=== PATIENT | male | born 1955 | race Two or more races ===

== ENCOUNTER 2017-08-19 10:04 | Inpatient (IN) | payer MEDICAID ==
[~2017-08-19] VITALS: Ht 162.6 cm; Wt 81.6 kg
[2017-08-19 10:10] VITALS: BP 124/65
[2017-08-19 10:38] LABS: APPEARANCE,URINE CLEAR; KETONES,URINE NEGATIVE (NEGATIVE); LEUKOCYTE ESTERASE ,URINE 1+ (NEGATIVE); NITRITE,URINE NEGATIVE (NEGATIVE); PH,URINE 5 (4.5-8.0); PROTEIN,URINE 3+ (NEGATIVE); UROBILINOGEN,URINE NORMAL MG/DL (0.0-1.0)
[2017-08-19 10:53] LABS: BACTERIA,URINE FEW /HPF; SQUAMOUS EPITHELIAL CELL,UR OCCASIONAL /LPF (NONE/OCC); YEAST,URINE FEW /HPF
[2017-08-19 11:13] LABS: BASOPHILS % (AUTO) 0.9 % (0.0-2.0); LYMPHOCYTES % (AUTO) 8.7 % (20.0-45.0); MEAN CORPUSCULAR HEMOGLOBIN 32.4 PG (27.0-31.0); MEAN CORPUSCULAR HGB CONC 33.4 G/DL (32.0-36.0); MEAN CORPUSCULAR VOLUME 97 FL (80-99); MEAN PLATELET VOLUME 8.5 FL (6.5-10.1); MONOCYTES % (AUTO) 8.3 % (1.0-10.0); PLATELET COUNT 211 K/UL (150-450); RED BLOOD COUNT 2.58 M/UL (4.70-6.10); RED CELL DISTRIBUTION WIDTH 14.1 % (11.6-14.8); WHITE BLOOD COUNT 6.3 K/UL (4.8-10.8)
[2017-08-19 12:03] LABS: ALANINE AMINOTRANSFERASE 9 U/L (12-78); ALBUMIN/GLOBULIN RATIO 0.3 (1.0-2.7); ANION GAP 11 (5-15); ASPARTATE AMINO TRANSFERASE 28 U/L (15-37); CALCIUM 7.8 MG/DL (8.5-10.1); CARBON DIOXIDE 21 MMOL/L (21-32); CHLORIDE 94 MMOL/L (98-107); CKMB 2.4 NG/ML (0.0-3.6); GLOMERULAR FILTRATION RATE 15.3 mL/min (>60); POTASSIUM 4.3 MMOL/L (3.5-5.1); SODIUM 126 MMOL/L (136-145); TOTAL PROTEIN 5.8 G/DL (6.4-8.2)
--- NOTE | 2017-08-19 12:23 | Diagnostic Imaging Report ---
Indication: Dyspnea Comparison: None A single view chest radiograph was obtained. Findings: There is a left pleural effusion. Interstitial edema is present. The heart size is borderline enlarged. Bones are osteopenic. Impression: Interstitial edema left pleural effusion
[2017-08-19 12:30] VITALS: BP 128/64
--- NOTE | 2017-08-19 13:37 | Emergency Room Report ---
History of Present Illness General Chief Complaint: Abnormal Labs Source: Medical Record, EMS Present Illness HPI This patient presents from a alf facility. He is nonverbal at baseline. He is G-tube dependent. The patient presents for abnormal labs. Per report, the patient presents for elevated creatinine and BUN. There is no other history available. There no other complaints. The patient has a history of chronic renal insufficiency, congestive heart failure, COPD, CVA and dementia. Allergies: Coded Allergies: No Known Allergies (Unverified , 08/19/17) Patient History Past Medical History: see triage record, old chart reviewed, DM, HTN, OK, CAD, CHF, renal disease Social History: Denies: smoking, alcohol use, drug use Reviewed Nursing Documentation: PMH: Agreed, PSxH: Agreed Nursing Documentation-PMH Hx Diabetes: Yes - type 2 Review of Systems All Other Systems: limited Physical Exam Vital Signs Date Time Temp Pulse Resp B/P (MAP) Pulse Ox O2 Delivery O2 Flow Rate FiO2 08/19/17 09:57 98.1 90 22 126/66 95 Nasal Cannula 2.0 Sp02 EP Interpretation: reviewed, normal General Appearance: no apparent distress, alert, GCS 15, non-toxic Head: normocephalic, atraumatic Eyes: bilateral eye normal inspection, bilateral eye PERRL ENT: no angioedema Neck: full range of motion, supple/symm/no masses Respiratory: chest non-tender, lungs clear, normal breath sounds, no respiratory distress, no retraction, no accessory muscle use, speaking full sentences Cardiovascular #1: regular rate, rhythm, no edema Gastrointestinal: normal bowel sounds, non tender, soft, non-distended, no guarding, no rebound, other - G-tube in place Rectal: deferred Musculoskeletal: other - contracted Neurologic: other - non-verbal. unable to obtain full neuro. At baseline. Psychiatric: mood/affect normal Skin: other - anasarca. See RN skin exam for DU. Medical Decision Making Diagnostic Impression: Primary Impression: Acute renal failure Additional Impressions: Hyponatremia Anemia ER Course Patient presents with acute renal failure. He is also found to have hyponatremia and anemia. Am unsure of the chronicity of this. However, further review of the chart states chronic renal insufficiency. The patient is nonverbal and unable to communicate. This patient will be admitted for acute renal failure, hyponatremia and anemia for further investigation, monitoring and treatment. Laboratory Tests Test 08/19/17 10:12 08/19/17 10:45 Urine Color Pale yellow Urine Appearance Clear Urine pH 5 (4.5-8.0) Urine Specific [place] 1.010 (1.005-1.035) Urine Protein 3+ (NEGATIVE) H Urine Glucose (UA) Negative (NEGATIVE) Urine Ketones Negative (NEGATIVE) Urine Occult Blood 4+ (NEGATIVE) H Urine Nitrite Negative (NEGATIVE) Urine Bilirubin Negative (NEGATIVE) Urine Urobilinogen Normal MG/DL (0.0-1.0) Urine Leukocyte Esterase 1+ (NEGATIVE) H Urine RBC 2-4 /HPF (0 - 0) H Urine WBC 2-4 /HPF (0 - 0) Urine Squamous Epithelial Cells Occasional /LPF Urine Bacteria Few /HPF (NONE) Urine Yeast Few /HPF (NONE) H White Blood Count 6.3 K/UL (4.8-10.8) Red Blood Count 2.58 M/UL (4.70-6.10) L Hemoglobin 8.4 G/DL (14.2-18.0) L Hematocrit 25.0 % (42.0-52.0) L Mean Corpuscular Volume 97 FL (80-99) Mean Corpuscular Hemoglobin 32.4 PG (27.0-31.0) H Mean Corpuscular Hemoglobin Concent 33.4 G/DL (32.0-36.0) Red Cell Distribution Width 14.1 % (11.6-14.8) Platelet Count 211 K/UL (150-450) Mean Platelet Volume 8.5 FL (6.5-10.1) Neutrophils (%) (Auto) 82.0 % (45.0-75.0) H Lymphocytes (%) (Auto) 8.7 % (20.0-45.0) L Monocytes (%) (Auto) 8.3 % (1.0-10.0) Eosinophils (%) (Auto) 0.0 % (0.0-3.0) Basophils (%) (Auto) 0.9 % (0.0-2.0) Prothrombin Time 10.0 SEC (9.30-11.50) Prothrombin Time INR 1.0 (0.9-1.1) PTT 30 SEC (23-33) Sodium Level 126 MMOL/L (136-145) L Potassium Level 4.3 MMOL/L (3.5-5.1) Chloride Level 94 MMOL/L (98-107) L Carbon Dioxide Level 21 MMOL/L (21-32) Anion Gap 11 (5-15) Blood Urea Nitrogen 124 mg/dL (7-18) H Creatinine 4.0 MG/DL (0.55-1.30) H Estimate Glomerular Filtration Rate 15.3 mL/min (>60) Glucose Level 134 MG/DL (74-106) H Lactic Acid Level 1.20 mmol/L (0.66-2.22) Calcium Level 7.8 MG/DL (8.5-10.1) L Total Bilirubin 0.2 MG/DL (0.2-1.0) Aspartate Amino Transferase (AST) 28 U/L (15-37) Alanine Aminotransferase (ALT) 9 U/L (12-78) L Alkaline Phosphatase 184 U/L (46-116) H Total Creatine Kinase 172 U/L (26-308) Creatine Kinase MB 2.4 NG/ML (0.0-3.6) Creatine Kinase MB Relative Index 1.3 Troponin I 0.056 ng/mL (0.000-0.056) Total Protein 5.8 G/DL (6.4-8.2) L Albumin 1.5 G/DL (3.4-5.0) L Globulin 4.3 g/dL Albumin/Globulin Ratio 0.3 (1.0-2.7) L EKG Diagnostic Results Rate: normal Rhythm: NSR ST Segments: no acute changes Rhythm Strip Diag. Results EP Interpretation: yes Rate: 80's Rhythm: NSR, no PVC's, no ectopy Chest X-Ray Diagnostic Results Chest X-Ray Diagnostic Results : Chest X-Ray Ordered: Yes # of Views/Limited/Complete: 1 View Indication: Other EP Interpretation: No Interpretation: no pneumothorax, other - L. pleural effusion, Interstitial edema. Impression: Other Electronically Signed by: Stormy Huang Last Vital Signs Date Time Temp Pulse Resp B/P (MAP) Pulse Ox O2 Delivery O2 Flow Rate FiO2 08/19/17 12:30 98.3 90 15 128/64 99 Nasal Cannula 2.0 Disposition: ADMITTED INPATIENT Condition: Serious Referrals: BLU ESCALANTE (PCP) JIMBO HUANG D.O. Aug 19, 2017 13:37
[2017-08-19 16:00] VITALS: BP 133/76
[2017-08-19] MEDS ORDERED: Heparin Sod 1000 units/ml 10ml IV PRN (19:00)
[2017-08-19 20:00] VITALS: BP 127/63
[2017-08-19] MEDS ORDERED: Zolpidem 5mg tab ORAL PRN (21:00)
[2017-08-19] MEDS: Epogen (for ESRD on dialysis) SUBQ SCH (22:11)
[2017-08-19] MEDS: Heparin 5000 units/ml inj SUBQ SCH (22:13)
[2017-08-19] MEDS ORDERED: traMADol 50mg tab GT PRN (23:00)
[2017-08-19] MEDS ORDERED: Acetaminophen 650mg/20.3ml GT PRN (23:00)
[2017-08-19] MEDS ORDERED: Albuterol/Ipratropium 3ml neb HHN PRN (23:00)
[2017-08-20] VITALS (12 sets, daily range): BP systolic 101–134; BP diastolic 37–75
--- NOTE | 2017-08-20 03:00 | Consultation ---
DATE OF CONSULTATION: 08/19/2017 NEPHROLOGY CONSULTATION ATTENDING PHYSICIAN: Parrish Main M.D. REASON FOR CONSULTATION: Elevated BUN and creatinine and abnormal electrolytes. HISTORY OF PRESENT ILLNESS: This is a 62-year-old male from [facility], who has previous history of advanced chronic kidney disease. The patient was referred to the hospital due to advanced kidney failure. The patient is demented and unable to give any further information. PAST MEDICAL HISTORY: 1. Pre end-stage renal failure. 2. 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 3. Status post cerebrovascular accident. 4. Chronic obstructive pulmonary disease. 5. Status post gastrostomy tube. 6. Status post intracranial hemorrhage. 7. Type 2 diabetes mellitus. 8. Anemia of chronic kidney disease. MEDICATIONS: He is on IV fluids, Tylenol p.r.n., heparin subcutaneously, Mylanta, Protonix, and saline. ALLERGIES: No known allergies. FAMILY HISTORY: Unable to obtain secondary to mental status. SOCIAL HISTORY: Unable to obtain secondary to mental status. REVIEW OF SYSTEMS: Unable to obtain secondary to mental status. PHYSICAL EXAMINATION: GENERAL: This is an elderly male who is in no acute distress. VITAL SIGNS: Blood pressure 132/76, pulse 90 and regular, respirations 20, and temperature 97.7. HEENT: The head is normocephalic and atraumatic. Pupils are equal, round, and reactive to light and accommodation consensually. NECK: Supple. Trachea midline. There was no lymphadenopathy or thyromegaly. LUNGS: Clear to auscultation and percussion. HEART: Regular rate and rhythm without rubs, murmurs, or gallops. ABDOMEN: Soft and nontender. He has a G-tube. EXTREMITIES: He has multiple contractures. There was no clubbing or cyanosis. NEUROLOGICAL: He is obtunded. There were no gross focal findings. LABORATORY DATA: No ancillary data. Hematocrit 25. Otherwise, CBC within normal limits. Sodium 126, potassium 4.3, BUN 124, and creatinine 4. ASSESSMENT: 1. End-stage renal failure, most likely secondary to diabetic nephropathy. 2. Pre end-stage renal failure. 3. 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 4. Status post cerebrovascular accident. 5. Chronic obstructive pulmonary disease. 6. Status post gastrostomy tube. 7. Status post intracranial hemorrhage. 8. Type 2 diabetes mellitus. 9. Anemia of chronic kidney disease. PLAN: 1. The patient will be started on hemodialysis tomorrow. 2. Vascular Surgery to insert the PermCath. Thank you, Dr. Main, for letting me participate in the care of this patient. Perez Yost M.D. DR: JEANINE JOB#: [id number] CC:
[2017-08-20] MEDS ORDERED: Milk of Magnesia 30ml Ud GT PRN (04:30)
[2017-08-20] MEDS: NovoLOG Insulin Flexpen SUBQ SCH ×4 (06:09→20:41)
--- NOTE | 2017-08-20 08:13 | History & Physical ---
History and Physical History & Physicial 62-year-old male from [facility], who has previous history of advanced chronic kidney disease who has had increasing difficulty with fluid management. The patient was referred to the hospital due to advanced kidney failure and evaluation for HD. The patient is demented and unable to give any further information. he is bedbound and GT dependent PAST MEDICAL HISTORY: 1. Pre end-stage renal failure. 2. 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 3. Status post cerebrovascular accident. 4. Chronic obstructive pulmonary disease. 5. Status post gastrostomy tube. 6. Status post intracranial hemorrhage. 7. Type 2 diabetes mellitus. 8. Anemia of chronic kidney disease. MEDICATIONS/ALLERGIES: REVIEWED FAMILY HISTORY: unable SOCIAL HISTORY: SNf patient; bedbound; has family REVIEW OF SYSTEMS: Unable PHYSICAL EXAMINATION: WDWN chronically ill NAD clear breath sounds bilaterally without rhonchi or wheeze [id number] without MRG NABS nontender no HSM; GT no CCE nonfocal poor LOC contractures Labs Test 08/19/17 10:12 08/19/17 10:45 Urine Color Pale yellow Urine Appearance Clear Urine pH 5 (4.5-8.0) Urine Specific [place] 1.010 (1.005-1.035) Urine Protein 3+ (NEGATIVE) Urine Glucose (UA) Negative (NEGATIVE) Urine Ketones Negative (NEGATIVE) Urine Occult Blood 4+ (NEGATIVE) Urine Nitrite Negative (NEGATIVE) Urine Bilirubin Negative (NEGATIVE) Urine Urobilinogen Normal MG/DL (0.0-1.0) Urine Leukocyte Esterase 1+ (NEGATIVE) Urine RBC 2-4 /HPF (0 - 0) Urine WBC 2-4 /HPF (0 - 0) Urine Squamous Epithelial Cells Occasional /LPF Urine Bacteria Few /HPF (NONE) Urine Yeast Few /HPF (NONE) White Blood Count 6.3 K/UL (4.8-10.8) Red Blood Count 2.58 M/UL (4.70-6.10) Hemoglobin 8.4 G/DL (14.2-18.0) Hematocrit 25.0 % (42.0-52.0) Mean Corpuscular Volume 97 FL (80-99) Mean Corpuscular Hemoglobin 32.4 PG (27.0-31.0) Mean Corpuscular Hemoglobin Concent 33.4 G/DL (32.0-36.0) Red Cell Distribution Width 14.1 % (11.6-14.8) Platelet Count 211 K/UL (150-450) Mean Platelet Volume 8.5 FL (6.5-10.1) Neutrophils (%) (Auto) 82.0 % (45.0-75.0) Lymphocytes (%) (Auto) 8.7 % (20.0-45.0) Monocytes (%) (Auto) 8.3 % (1.0-10.0) Eosinophils (%) (Auto) 0.0 % (0.0-3.0) Basophils (%) (Auto) 0.9 % (0.0-2.0) Prothrombin Time 10.0 SEC (9.30-11.50) Prothromb Time International Ratio 1.0 (0.9-1.1) Activated Partial Thromboplast Time 30 SEC (23-33) Sodium Level 126 MMOL/L (136-145) Potassium Level 4.3 MMOL/L (3.5-5.1) Chloride Level 94 MMOL/L (98-107) Carbon Dioxide Level 21 MMOL/L (21-32) Anion Gap 11 (5-15) Blood Urea Nitrogen 124 mg/dL (7-18) Creatinine 4.0 MG/DL (0.55-1.30) Estimat Glomerular Filtration Rate 15.3 mL/min (>60) Glucose Level 134 MG/DL (74-106) Lactic Acid Level 1.20 mmol/L (0.66-2.22) Calcium Level 7.8 MG/DL (8.5-10.1) Total Bilirubin 0.2 MG/DL (0.2-1.0) Aspartate Amino Transf (AST/SGOT) 28 U/L (15-37) Alanine Aminotransferase (ALT/SGPT) 9 U/L (12-78) Alkaline Phosphatase 184 U/L (46-116) Total Creatine Kinase 172 U/L (26-308) Creatine Kinase MB 2.4 NG/ML (0.0-3.6) Creatine Kinase MB Relative Index 1.3 Troponin I 0.056 ng/mL (0.000-0.056) Total Protein 5.8 G/DL (6.4-8.2) Albumin 1.5 G/DL (3.4-5.0) Globulin 4.3 g/dL Albumin/Globulin Ratio 0.3 (1.0-2.7) ASSESSMENT: 1. ESRD 2. fluid overload 3. OBS 4. History of cerebrovascular accident. 5. Chronic obstructive pulmonary disease. 6. Status post gastrostomy tube. 7. Status post intracranial hemorrhage. 8. Type 2 diabetes mellitus. 9. Anemia of chronic kidney disease. 10. UTI PLAN renal HD stabilize resume SNF meds dc when stable antibiotics for UTI BLU ESCALANTE Aug 20, 2017 08:13
[2017-08-20] MEDS: Heparin 5000 units/ml inj SUBQ SCH ×2 (09:00→20:40)
[2017-08-20] MEDS: Ascorbic Acid 500mg tab GT SCH (09:36)
[2017-08-20] MEDS: Metoprolol 25mg tab GT SCH ×2 (09:36→20:47)
[2017-08-20] MEDS: Docusate 100mg cap ORAL SCH (09:36)
[2017-08-20 10:40] LABS: ALANINE AMINOTRANSFERASE 6 U/L (12-78); ALBUMIN/GLOBULIN RATIO 0.4 (1.0-2.7); ANION GAP 10 (5-15); ASPARTATE AMINO TRANSFERASE 30 U/L (15-37); CALCIUM 8.3 MG/DL (8.5-10.1); CARBON DIOXIDE 21 MMOL/L (21-32); CHLORIDE 98 MMOL/L (98-107); GLOMERULAR FILTRATION RATE 15.3 mL/min (>60); PHOSPHORUS 4.3 MG/DL (2.5-4.9); SODIUM 129 MMOL/L (136-145)
[2017-08-20 10:47] LABS: BASOPHILS % (AUTO) 1.6 % (0.0-2.0); LYMPHOCYTES % (AUTO) 11.5 % (20.0-45.0); MEAN CORPUSCULAR HEMOGLOBIN 32.8 PG (27.0-31.0); MEAN CORPUSCULAR HGB CONC 33.1 G/DL (32.0-36.0); MEAN CORPUSCULAR VOLUME 99 FL (80-99); MEAN PLATELET VOLUME 8.1 FL (6.5-10.1); MONOCYTES % (AUTO) 6.7 % (1.0-10.0); NEUTROPHILS % (AUTO) 80.2 % (45.0-75.0); PLATELET COUNT 222 K/UL (150-450); RED BLOOD COUNT 2.81 M/UL (4.70-6.10); RED CELL DISTRIBUTION WIDTH 14.1 % (11.6-14.8); WHITE BLOOD COUNT 5.8 K/UL (4.8-10.8)
--- NOTE | 2017-08-20 10:50 | Nephrology Progress Note ---
Assessment/Plan Plan ESRD - for PermCath today then HD To start regular HD Rx. Referred to [facility]. Subjective Subjective Nonverbal Objective Objective Last 24 Hour Vital Signs Date Time Temp Pulse Resp B/P (MAP) Pulse Ox O2 Delivery O2 Flow Rate FiO2 08/20/17 09:36 97 131/51 08/20/17 09:36 97 131/51 08/20/17 08:00 97.9 97 18 131/51 98 Nasal Cannula 2.0 28 08/20/17 07:38 96 Nasal Cannula 2.0 28 08/20/17 07:38 75 18 Nasal Cannula 2.0 28 08/20/17 07:38 Nasal Cannula 2.0 28 08/20/17 04:00 97.3 97 18 100 Nasal Cannula 2.0 08/20/17 04:00 98.4 94 20 131/56 100 Nasal Cannula 2.0 08/20/17 03:46 95 08/20/17 00:00 97.7 74 20 127/63 98 Nasal Cannula 2.0 08/19/17 23:45 88 08/19/17 20:00 97.3 97 18 127/63 Nasal Cannula 2.0 08/19/17 19:54 100 08/19/17 16:00 97.7 90 20 133/76 95 Room Air 08/19/17 16:00 79 08/19/17 13:45 98.3 90 15 128/64 99 Nasal Cannula 2.0 08/19/17 12:30 98.3 90 15 128/64 99 Nasal Cannula 2.0 Laboratory Tests 08/20/17 09:05: White Blood Count 5.8, Red Blood Count 2.81L, Hemoglobin 9.2L, Hematocrit 27.9L , Mean Corpuscular Volume 99, Mean Corpuscular Hemoglobin 32.8H, Mean Corpuscular Hemoglobin Concent 33.1, Red Cell Distribution Width 14.1, Platelet Count 222, Mean Platelet Volume 8.1, Neutrophils (%) (Auto) 80.2H, Lymphocytes ( %) (Auto) 11.5L, Monocytes (%) (Auto) 6.7, Eosinophils (%) (Auto) 0.0, Basophils (%) (Auto) 1.6, Sodium Level [Pending], Potassium Level [Pending], Chloride Level [Pending], Carbon Dioxide Level [Pending], Blood Urea Nitrogen [ Pending], Creatinine [Pending], Estimat Glomerular Filtration Rate [Pending], Glucose Level [Pending], Calcium Level [Pending], Phosphorus Level [Pending], Total Bilirubin [Pending], Aspartate Amino Transf (AST/SGOT) [Pending], Alanine Aminotransferase (ALT/SGPT) [Pending], Alkaline Phosphatase [Pending], Total Protein [Pending], Albumin [Pending], Globulin [Pending], Hepatitis A IgM Antibody [Pending], Hepatitis B Surface Antigen [Pending], Hepatitis B Core IgM Antibody [Pending], Hepatitis C Antibody [Pending] Height (Feet): 5 Height (Inches): 4.00 Weight (Pounds): 180 Objective Cv RR Lungs CTA Abd SNT. BS + E No CCE KRISTINE SULLIVAN Aug 20, 2017 10:50
--- NOTE | 2017-08-20 10:54 | Diagnostic Imaging Report ---
Indication: ABD PAIN elevated renal function tests. Acute renal failure Technique: Grayscale and duplex images of the kidneys, retroperitoneum, and bladder were obtained. Comparison:None Findings: Right kidney measures 11 cm in length. Left kidney measures 9.9 cm in length. Both kidneys demonstrate increased echogenicity. No hydronephrosis. There are bilateral renal cysts. Echogenic shadowing foci in both renal sinuses may indicate bilateral nonobstructive calyceal calculi. Normal inferior vena cava. Bladder is empty, contains a Bartholomew catheter. Impression: Bilateral echogenic kidneys, consistent with chronic medical renal disease Negative for hydronephrosis Bilateral non-shadowing renal sinus echogenic foci, may represent small nonobstructive calyceal calculi Bilateral renal cysts.
[2017-08-20] MEDS ORDERED: Levofloxacin 500mg tab ORAL ONE (13:00)
[2017-08-20] MEDS ORDERED: Heparin Sod 1000 units/ml 10ml INJ ONE (13:30)
[2017-08-20] MEDS ORDERED: Heparin 2000 units/Ns 1000ml INJ ONE (13:30)
[2017-08-20] MEDS ORDERED: Lidocaine 2% 20mg/ml/Epi 0.005mg/ml 20ml vial INJ ONE (13:30)
--- NOTE | 2017-08-20 14:22 | Pre-Procedure Note/Attestation ---
Pre-Procedure Note/Attestation Complete Prior to Procedure Planned Procedure: not applicable Procedure Narrative: tunneled dialysis catheter Indications for Procedure Pre-Operative Diagnosis: ESRD Attestation I attest that I discussed the nature of the procedure; its benefits; risks and complications; and alternatives (and the risks and benefits of such alternatives ), prior to the procedure, with the patient (or the patient's legal fulfillment representative). I attest that, if there was a reasonable possibility of needing a blood transfusion, the patient (or the patient's legal fulfillment representative) was given the [facility] standardized written summary, pursuant to the Rodrick Danika Blood Safety Act ([place] Health and Safety Code # 1645, as amended). I attest that I re-evaluated the patient just prior to the surgery and that there has been no change in the patient's H&P, except as documented below: Discussed with son by phone at 1421 on 08/20/2017 CASEY BENITEZ M.D. Aug 20, 2017 14:22
--- NOTE | 2017-08-20 17:06 | Wound Care Consultation ---
Wound Assessment Wound Assessment #1: Wound Number: 1 Wound Present on Admission: Yes New Wound: No Status Change of Wound: No Wound Location Body Site Modif: left Wound Location Body Site: trochanter - area Wound Type: pressure ulcer Augustine Test: Does not Augustine Pressure Ulcer Stage: II - scattered Wound Thickness: Partial Thickness Wound Length: 13.0 Wound Width: 13.0 Wound Depth: 0.1 Percent of Wound [place]/Red: 100 Wound Drainage Description: Serosanguineous Wound Drainage Amount: Scant Wound Drainage Odor: None/Absent Tissue Surrounding Wound: Intact Wound General Appearance: Reddened, Draining Wound Assessment #2: Wound Number: 2 Wound Present on Admission: Yes New Wound: No Status Change of Wound: No Wound Location Body Site Modif: right Wound Location Body Site: heel Wound Type: pressure ulcer Augustine Test: Does not Augustine Pressure Ulcer Stage: Unstageable Wound Thickness: Full Thickness Wound Length: 4.0 Wound Width: 4.0 Wound Depth: utd Percent of Wound Black/Brown: 100 Wound Drainage Description: Serosanguineous Wound Drainage Amount: Scant Wound Drainage Odor: None/Absent Tissue Surrounding Wound: Indurated Wound General Appearance: Blackened, Draining, Necrotic Wound Comment #1 Left trochanter scattered stage II pressure ulcers. Surrounding skin intact. #2 Right heel unstageable pressure ulcer with black eschar adhered to wound bed. #3 Dryness on both lower legs and feet Recommendation -Left trochanter scattered stage II pressure ulcers Cleanse with saline, pat dry, apply Triad cream, cover with Biatain silicone daily and PRN soiled/dislodged -Right heel unstageable pressure ulcer Cleanse with saline, pat dry, apply Betadine, cover with 4x4, wrap with Kerlix daily and PRN soiled/dislodged -Low air loss mattress -Optimize nutrition -Heel protector on both heels -Offload both heels -Turn and reposition -Keep clean and dry -Apply A&D ointment on both lower legs and feet -Assess and f/u accordingly for any changes BARRY MADDOX RN Aug 20, 2017 17:06
--- NOTE | 2017-08-20 17:44 | Cardiology Report ---
APPROVED REPORT EXAM: Two-dimensional and M-mode echocardiogram with Doppler and color Doppler. INDICATION Preop evaluation M-Mode DIMENSIONS IVSd1.2 (0.7-1.1cm)Left Atrium (MM)4.4 (1.6-4.0cm) LVDd5.1 (3.5-5.6cm)Aortic Root2.9 (2.0-3.7cm) PWd0.8 (0.7-1.1cm)Aortic Cusp Exc.2.0 (1.5-2.0cm) LVDs3.8 (2.5-4.0cm) PWs1.6 cm Technically difficult study due to poor acoustical windows and surgical site blocking. Normal left ventricular chamber size. Mild global left ventricular hypokinesis to extent visualized. Left ventricular ejection fraction estimated to be 50 %. Study quality precludes accurate assessment of regional wall motion. Borderline mild left ventricular hypertrophy. Anterior Echo-free space, may be due to pericardial fat or effusion. Mild left atrial enlargement. Right cardiac chamber sizes are within normal limits. Focal aortic valve sclerosis with adequate cusp excursion. Thickened mitral valve leaflets with normal excursion. Mitral annulus and aortic root calcification. Pulmonic valve not well visualized. Normal tricuspid valve structure. IVC at normal size with physiologic collapse. A color flow and spectral Doppler study was performed and revealed: Trace aortic regurgitation. Trace to mild mitral regurgitation. Mitral diastolic velocities suggest reduced left ventricular relaxation c/w mild LV diastolic dysfunction (Grade I). Trace to mild tricuspid regurgitation. Tricuspid systolic velocities suggests peak right ventricular systolic pressure of 44 mmHg, consistent with mild pulmonary hypertension.
[2017-08-20] MEDS: Levemir Flexpen SUBQ SCH (20:40)
[2017-08-20] MEDS ORDERED: ACTOS15 MG GT (22:29)
[2017-08-20] MEDS ORDERED: LEVEMIR100 UNIT/1 SUBQ (22:29)
[2017-08-20] MEDS ORDERED: NORVASC10 MG GT (22:29)
[2017-08-20] MEDS ORDERED: TYLENOL EXTRA500 MG GT (22:29)
[2017-08-20] MEDS ORDERED: COLACE100 MG GT (22:29)
[2017-08-20] MEDS ORDERED: zinc (22:29)
[2017-08-20] MEDS ORDERED: RENAGEL400 MG GT (22:29)
[2017-08-20] MEDS ORDERED: PROMOD946 ML GT (22:29)
[2017-08-20] MEDS ORDERED: ZOFRAN4 M1 GT (22:29)
[2017-08-20] MEDS ORDERED: MOM30 ML (22:29)
[2017-08-20] MEDS ORDERED: IPRATROPIU0.2 MG/1 M HHN (22:29)
[2017-08-20] MEDS ORDERED: DULCOLAX10 MG RC (22:29)
[2017-08-20] MEDS ORDERED: VITAMIN C500 M3 GT (22:29)
[2017-08-20] MEDS ORDERED: CALCIUM CARBON650 M2 GT (22:29)
[2017-08-20] MEDS ORDERED: TRAMADOL HCL50 MG GT ×2 (22:29)
[2017-08-20] MEDS ORDERED: METOPROLOL TART25 MG GT (22:29)
[2017-08-20] MEDS ORDERED: UTI-STAT L3875 MG/31 PO (22:29)
[2017-08-20] MEDS ORDERED: FERROUS SULFAT325 M2 GT (22:29)
[2017-08-20] MEDS ORDERED: MULTIVITAMINS1 EAC8 GT (22:29)
[2017-08-20] MEDS ORDERED: DIPHENHYDRAMINE25 MG GT (22:29)
[2017-08-21 00:48] VITALS: BP 125/61
[2017-08-21 04:00] VITALS: BP 136/73
[2017-08-21] MEDS: NovoLOG Insulin Flexpen SUBQ SCH ×4 (06:30→21:10)
[2017-08-21 08:32] VITALS: BP 142/72
[2017-08-21] MEDS ORDERED: Cefepime HCl 0.5 GM in D5W 55 ML IVPB SCH (09:00)
[2017-08-21] MEDS: Ascorbic Acid 500mg tab GT SCH (09:46)
[2017-08-21] MEDS: Docusate 100mg cap ORAL SCH (09:46)
[2017-08-21] MEDS: Tums 500mg GT SCH (09:46)
[2017-08-21] MEDS: Metoprolol 25mg tab GT SCH ×2 (09:47→21:07)
[2017-08-21] MEDS: Renvela 800mg Pkt GT SCH ×3 (09:47→17:21)
[2017-08-21] MEDS: Heparin 5000 units/ml inj SUBQ SCH ×2 (09:51→21:11)
--- NOTE | 2017-08-21 10:50 | General Progress Note ---
Assessment/Plan Assessment/Plan ASSESSMENT: 1. ESRD 2. fluid overload 3. OBS 4. History of cerebrovascular accident. 5. Chronic obstructive pulmonary disease. 6. Status post gastrostomy tube. 7. Status post intracranial hemorrhage. 8. Type 2 diabetes mellitus. 9. Anemia of chronic kidney disease. 10. UTI PLAN renal appreciated HD stabilize SNF meds dc when stable antibiotics for UTI- needs IV impression, plan, and exam edited and reviewed in detail care discussed with RN Subjective ROS Limited/Unobtainable: Yes Allergies: Coded Allergies: No Known Allergies (Unverified , 08/19/17) Objective Last 24 Hour Vital Signs Date Time Temp Pulse Resp B/P (MAP) Pulse Ox O2 Delivery O2 Flow Rate FiO2 08/21/17 09:47 88 142/72 08/21/17 09:45 88 142/72 08/21/17 08:32 99.0 88 20 142/72 100 Nasal Cannula 1.0 08/21/17 07:15 97 18 Room Air 21 08/21/17 07:15 Room Air 21 08/21/17 07:15 98 Room Air 21 08/21/17 04:00 99.7 95 22 136/73 96 Nasal Cannula 2.0 08/21/17 03:47 90 08/21/17 00:48 98.2 85 22 125/61 98 Room Air 08/20/17 23:55 81 08/20/17 20:47 98 123/46 08/20/17 20:03 93 08/20/17 20:00 97.5 92 18 123/46 98 Room Air 08/20/17 19:30 94 Room Air 21 08/20/17 19:30 Room Air 21 08/20/17 19:30 90 18 Room Air 21 08/20/17 16:00 89 08/20/17 16:00 97.5 84 19 101/37 Nasal Cannula 2.0 08/20/17 14:50 85 22 109/62 100 Nasal Cannula 2.0 08/20/17 14:45 85 15 117/63 100 Nasal Cannula 2.0 08/20/17 14:40 83 18 117/68 100 Nasal Cannula 2.0 08/20/17 14:35 78 16 118/70 100 Nasal Cannula 2.0 08/20/17 14:30 75 16 118/75 100 Nasal Cannula 2.0 08/20/17 13:22 76 24 2.0 08/20/17 12:00 71 08/20/17 11:47 97.5 71 20 134/62 100 Nasal Cannula 2.0 Height (Feet): 5 Height (Inches): 4.00 Weight (Pounds): 180 Objective WDWN NAD reduced breath sounds bilaterally without rhonchi or wheeze [id number] without MRG NABS nontender no HSM; GT no CC edema contractures nonfocal BLU ESCALANTE Aug 21, 2017 10:50
--- NOTE | 2017-08-21 11:27 | Diagnostic Imaging Report ---
Indications: Needs long-term dialysis access Technique: Patient had been given is scheduled dose of antibiotics one hour prior to commencement of the procedure, so no preprocedure IV antibiotics utilized. Informed consent obtained prior to commencement of the procedure from patient's son by phone. Total sterile technique, including sterile gloves, hand hygiene, hat, mask,, sterile gown, large sterile drape, and preparation with 2% chlorhexidine utilized. Local anesthesia with 1% lidocaine. Under real-time ultrasound guidance, puncture right internal jugular vein using 21-gauge micropuncture needle, passage 0.018 guidewire, exchange for 4 Ghanaian micropuncture introducer. The guidewire was used to measure the appropriate catheter length, and was removed. The sheath was left in place. The subcutaneous tract was then anesthetized with 1% lidocaine. A chest dermatotomy was made . The tunneling device was used to pull a 14.5 Ghanaian 23 cm BioBloc catheter through the subcutaneous tunnel to the neck dermatotomy. A guidewire was passed through the neck introducer into the inferior vena cava, and serial dilators were passed over it, followed by the introduction of a 14.5 [place]ian AirGuard peel-away sheath. The catheter was then introduced into the sheath, the peel-away sheath was removed. Digital radiograph documents satisfactory catheter tip position in the high right atrium, no kinking at the insertion site. Both catheter ports aspirated and flushed. Catheter was fixed to the skin. Patient tolerated procedure well without immediate complication. Total fluoroscopy time 0.7 minutes. Total dose area product 49 dGycm2 . Comparison: None Findings: Completion radiograph documents satisfactory position and course of the catheter, catheter tip at the high right atrium. Impression: Successful placement of right transjugular tunneled dialysis catheter, as described above
[2017-08-21 11:40] VITALS: BP 135/73
[2017-08-21] MEDS ORDERED: Heparin 5000 units/ml inj INJ PRN (12:00)
--- NOTE | 2017-08-21 12:00 | Nephrology Progress Note ---
Assessment/Plan Plan ESRD - had PermCath + HD yesterday. Next HD tomorrow. To start regular HD Rx. Referred to [facility]. Subjective Subjective Nonverbal Objective Objective Last 24 Hour Vital Signs Date Time Temp Pulse Resp B/P (MAP) Pulse Ox O2 Delivery O2 Flow Rate FiO2 08/21/17 11:40 97.7 85 20 135/73 99 Nasal Cannula 1.0 08/21/17 09:47 88 142/72 08/21/17 09:45 88 142/72 08/21/17 08:32 99.0 88 20 142/72 100 Nasal Cannula 1.0 08/21/17 07:15 97 18 Room Air 21 08/21/17 07:15 Room Air 21 08/21/17 07:15 98 Room Air 21 08/21/17 04:00 99.7 95 22 136/73 96 Nasal Cannula 2.0 08/21/17 03:47 90 08/21/17 00:48 98.2 85 22 125/61 98 Room Air 08/20/17 23:55 81 08/20/17 20:47 98 123/46 08/20/17 20:03 93 08/20/17 20:00 97.5 92 18 123/46 98 Room Air 08/20/17 19:30 94 Room Air 21 08/20/17 19:30 Room Air 21 08/20/17 19:30 90 18 Room Air 21 08/20/17 16:00 89 08/20/17 16:00 97.5 84 19 101/37 Nasal Cannula 2.0 08/20/17 14:50 85 22 109/62 100 Nasal Cannula 2.0 08/20/17 14:45 85 15 117/63 100 Nasal Cannula 2.0 08/20/17 14:40 83 18 117/68 100 Nasal Cannula 2.0 08/20/17 14:35 78 16 118/70 100 Nasal Cannula 2.0 08/20/17 14:30 75 16 118/75 100 Nasal Cannula 2.0 08/20/17 13:22 76 24 2.0 08/20/17 12:00 71 Height (Feet): 5 Height (Inches): 4.00 Weight (Pounds): 180 Objective Cv RR Lungs CTA Abd SNT. BS + E No CCE KRISTINE SULLIVAN Aug 21, 2017 12:00
[2017-08-21] MEDS ORDERED: Heparin Sod 1000 units/ml 10ml IV PRN (13:00)
[2017-08-21] MEDS ORDERED: Cefepime HCl 1 GM in D5W 55 ML IVPB SCH (13:00)
[2017-08-21] MEDS: Ferrous Sulfate 300 MG/5 ML UDC GT SCH ×2 (13:45→17:21)
[2017-08-21 16:02] VITALS: BP 136/65
[2017-08-21 20:12] VITALS: BP 132/62
[2017-08-21] MEDS: Levemir Flexpen SUBQ SCH (21:10)
[2017-08-21] MEDS: Epogen (for ESRD on dialysis) SUBQ SCH (21:11)
[2017-08-21] MEDS: Dyna-Hex 2% Top Sol 2oz TOPIC SCH (22:24)
[2017-08-22] VITALS (7 sets, daily range): BP systolic 122–157; BP diastolic 36–69
[2017-08-22] MEDS: NovoLOG Insulin Flexpen SUBQ SCH ×4 (06:30→23:49)
--- NOTE | 2017-08-22 08:25 | Diagnostic Imaging Report ---
APPROVED REPORT CPT Code: 71471 Vascular Symptoms Comments: Pre-Op Doppler Spectral Velocity Analysis RightLeft Note: Exam is technically difficult due to patient was altered and unable hold still. BILATERAL: CCA/BULB - Imaging reveals irregular, minimal plaque in both carotid bulbs. arteries. The Doppler spectral flow analysis is within normal limits throughout the internal and external carotid arteries. VERTEBRAL- The vertebral arteries are within normal limits.
--- NOTE | 2017-08-22 08:25 | Diagnostic Imaging Report ---
APPROVED REPORT CPT Code: 39949 Present Symptoms Shortness of breath Comments: Technically difficult study due to bilateral lower extremity contracture. RIGHT LEG: Venous imaging reveals a patent deep venous system. There is no evidence of thrombus within the femoral, popliteal or tibial segments. The greater saphenous vein is also within normal limits. Doppler indicates normal spontaneous flow within these segments. The right posterior tibial veins were not visualized due to patient contracture. LEFT LEG: Venous imaging reveals a patent deep venous system. There is no evidence of thrombus within the femoral, popliteal or tibial segments. The greater saphenous vein is also within normal limits. Doppler indicates normal spontaneous flow within these segments. Incidental finding: Lymph nodes in the right inguinal area at the level of the proximal superficial femoral vein measuring approximately 1.0 cm each.
--- NOTE | 2017-08-22 08:26 | Diagnostic Imaging Report ---
APPROVED REPORT CPT Code: 44228 Present Symptoms Comments: Pain and swelling BILATERAL UPPER EXTREMITY (Deep venous system): Imaging reveals patency of the internal jugular, subclavian, axillary and brachial veins. Doppler indicates normal spontaneous flow within these venous segments.
--- NOTE | 2017-08-22 08:26 | Diagnostic Imaging Report ---
APPROVED REPORT CPT Code: 37367 Symptoms Other : Pain Left arm edema Comments Pre-op dialysis access evaluation BILATERAL UPPER EXTREMITY: Imaging of the subclavian, axillary, brachial, right radial and right ulnar arteries is within normal limits. There is no evidence of stenosis or occlusion within these segments. The Doppler waveforms of the bilateral upper extremity are tri-phasic, consistent with normal inflow to the upper extremity. Note: Vasodilation (Doppler) waveforms noted in the left radial artery and left ulnar artery due to forearm edema.
--- NOTE | 2017-08-22 08:26 | Diagnostic Imaging Report ---
APPROVED REPORT CPT Code: G0365 Present Symptoms Comments: Pre-op dialysis access evaluation Vein Measurements(cm) Cephalic Basilic Right LeftRight Left 0.30Upper Arm0.320.34Mid Upper Arm0.42 0.33Mid Upper Arm0.290.31Antecubital Fossa0.38 0.32Upper Forearm0.24 0.22Antecubital Fossa0.44Wrist 0.17Upper Forearm0.22 The right and left cephalic and basilic veins were measured and evaluated for patency.
[2017-08-22] MEDS: Tums 500mg GT SCH (08:38)
[2017-08-22] MEDS: Renvela 800mg Pkt GT SCH ×3 (08:38→18:56)
[2017-08-22] MEDS: Ferrous Sulfate 300 MG/5 ML UDC GT SCH ×3 (08:38→18:56)
[2017-08-22] MEDS: Docusate 100mg cap ORAL SCH ×3 (08:39→09:00)
[2017-08-22] MEDS: Ascorbic Acid 500mg tab GT SCH (08:39)
[2017-08-22] MEDS: Metoprolol 25mg tab GT SCH ×2 (08:41→21:29)
[2017-08-22] MEDS: Heparin 5000 units/ml inj SUBQ SCH ×2 (08:47→21:34)
--- NOTE | 2017-08-22 08:53 | Nephrology Progress Note ---
Assessment/Plan Plan 1. ESRD on HD. 2. HTN 3.DM 4.anemia of CKD 5.s/p CVA 6.COPD 7. S/P PEG 8.s/p intracranial hemorrhage 9.left foot gangrene Plan HD today Pending approval from [facility] for outpt HD podiatry consult Subjective Subjective No acute event. Objective Objective Last 24 Hour Vital Signs Date Time Temp Pulse Resp B/P (MAP) Pulse Ox O2 Delivery O2 Flow Rate FiO2 08/22/17 08:41 77 145/69 08/22/17 08:41 77 145/69 08/22/17 08:00 97.8 77 20 145/69 99 Nasal Cannula 2.0 08/22/17 04:20 97.9 81 16 152/63 99 Nasal Cannula 08/22/17 04:00 73 08/22/17 00:30 75 155/60 Nasal Cannula 2.0 08/22/17 00:24 98.2 75 16 157/36 99 Nasal Cannula 1.0 08/22/17 00:00 73 08/21/17 21:07 86 132/62 08/21/17 20:12 98.8 89 20 132/62 Nasal Cannula 1.0 08/21/17 20:00 89 08/21/17 19:00 100 Room Air 21 08/21/17 19:00 85 18 Room Air 21 08/21/17 19:00 Room Air 21 08/21/17 16:02 98.8 91 20 136/65 98 Nasal Cannula 2.0 08/21/17 16:00 91 08/21/17 12:00 84 08/21/17 11:40 97.7 85 20 135/73 99 Nasal Cannula 2.0 08/21/17 09:47 88 142/72 08/21/17 09:45 88 142/72 Height (Feet): 5 Height (Inches): 4.00 Weight (Pounds): 180 Objective NAD, sleeping but aurosable clear RRR soft, non tender, BS+ no edema, R chest permacath + IGLESIAS,CAS Aug 22, 2017 08:53
[2017-08-22] MEDS: Cefepime 500mg in D5W 55ml IVPB SCH (12:04)
--- NOTE | 2017-08-22 16:29 | General Progress Note ---
Assessment/Plan Assessment/Plan ASSESSMENT: 1. ESRD 2. fluid overload 3. OBS 4. History of cerebrovascular accident. 5. Chronic obstructive pulmonary disease. 6. Status post gastrostomy tube. 7. Status post intracranial hemorrhage. 8. Type 2 diabetes mellitus. 9. Anemia of chronic kidney disease. 10. UTI PLAN renal appreciated HD stabilize SNF meds dc when stable antibiotics for UTI- needs IV wound care impression, plan, and exam edited and reviewed in detail care discussed with RN Subjective Allergies: Coded Allergies: No Known Allergies (Unverified , 08/19/17) Subjective stable care noted Objective Last 24 Hour Vital Signs Date Time Temp Pulse Resp B/P (MAP) Pulse Ox O2 Delivery O2 Flow Rate FiO2 08/22/17 12:00 97.5 66 19 126/58 100 Nasal Cannula 2.0 08/22/17 08:41 77 145/69 08/22/17 08:41 77 145/69 08/22/17 08:00 97.8 77 20 145/69 99 Nasal Cannula 2.0 08/22/17 06:33 Room Air 08/22/17 06:33 100 Room Air 08/22/17 06:33 78 17 Room Air 08/22/17 04:20 97.9 81 16 152/63 99 Nasal Cannula 08/22/17 04:00 73 08/22/17 00:30 75 155/60 Nasal Cannula 2.0 08/22/17 00:24 98.2 75 16 157/36 99 Nasal Cannula 1.0 08/22/17 00:00 73 08/21/17 21:07 86 132/62 08/21/17 20:12 98.8 89 20 132/62 Nasal Cannula 1.0 08/21/17 20:00 89 08/21/17 19:00 100 Room Air 21 08/21/17 19:00 85 18 Room Air 21 08/21/17 19:00 Room Air 21 Intake and Output 08/22/17 08/23/17 19:00 07:00 # Bowel Movements 1 Height (Feet): 5 Height (Inches): 4.00 Weight (Pounds): 180 Objective WDWN NAD reduced breath sounds bilaterally without rhonchi or wheeze [id number] without MRG NABS nontender no HSM; GT no CC edema contractures nonfocal BLU ESCALANTE Aug 22, 2017 16:29
[2017-08-22] MEDS: Dyna-Hex 2% Top Sol 2oz TOPIC SCH (21:29)
[2017-08-22] MEDS: Levemir Flexpen SUBQ SCH (21:34)
[2017-08-23] VITALS: BP 122/66
[2017-08-23 04:00] VITALS: BP 129/53
[2017-08-23] MEDS: NovoLOG Insulin Flexpen SUBQ SCH ×2 (06:00→12:00)
[2017-08-23] MEDS ORDERED: Morphine Sulfate 4mg/ml Inj IVP PRN (07:15)
[2017-08-23] MEDS ORDERED: Norco 5mg/325mg tab GT PRN (07:15)
[2017-08-23] MEDS ORDERED: traMADol 50mg tab GT PRN (07:15)
[2017-08-23 08:00] VITALS: BP 144/70
--- NOTE | 2017-08-23 08:42 | General Progress Note ---
Assessment/Plan Assessment/Plan ASSESSMENT: 1. ESRD 2. fluid overload 3. OBS 4. History of cerebrovascular accident. 5. Chronic obstructive pulmonary disease. 6. Status post gastrostomy tube. 7. Status post intracranial hemorrhage. 8. Type 2 diabetes mellitus. 9. Anemia of chronic kidney disease. 10. UTI PLAN renal appreciated HD and await outpatient approval stabilize SNF meds dc when stable antibiotics for UTI- needs IV x 5days wound care impression, plan, and exam edited and reviewed in detail care discussed with RN Subjective Allergies: Coded Allergies: No Known Allergies (Unverified , 08/19/17) Subjective stable care noted Objective Last 24 Hour Vital Signs Date Time Temp Pulse Resp B/P (MAP) Pulse Ox O2 Delivery O2 Flow Rate FiO2 08/23/17 08:00 97.5 78 22 144/70 99 Nasal Cannula 2.0 08/23/17 04:00 72 08/23/17 04:00 98.7 70 18 129/53 100 Nasal Cannula 08/23/17 02:00 78 08/23/17 00:00 98.6 75 20 122/66 100 Nasal Cannula 2.0 08/22/17 21:29 66 126/62 08/22/17 20:00 82 08/22/17 20:00 98.7 83 20 142/59 99 Nasal Cannula 2.0 08/22/17 19:55 80 16 Room Air 08/22/17 19:55 100 Room Air 21 08/22/17 19:55 Room Air 21 08/22/17 16:00 97.0 78 21 122/60 99 Nasal Cannula 2.0 08/22/17 16:00 68 08/22/17 13:00 Nasal Cannula 2.0 08/22/17 12:00 97.5 66 19 126/58 100 Nasal Cannula 2.0 08/22/17 12:00 69 Laboratory Tests 08/23/17 06:30: Iron Level [Pending], Unsaturated Iron Binding [Pending], Ferritin [Pending], Vitamin B12 Level [Pending], Folate [Pending] Height (Feet): 5 Height (Inches): 4.00 Weight (Pounds): 180 Objective WDWN NAD reduced breath sounds bilaterally without rhonchi or wheeze [id number] without MRG NABS nontender no HSM; GT no CC edema contractures nonfocal BLU ESCALANTE Aug 23, 2017 08:42
[2017-08-23 08:58] LABS: FOLIC ACID 18.9 NG/ML (3.1-17.5); IRON 43 ug/dL (50-175); TOTAL IRON BINDING CAPACITY 77 ug/dL (250-450)
[2017-08-23] MEDS: Docusate 100mg cap ORAL SCH (09:00)
--- NOTE | 2017-08-23 10:37 | Nephrology Progress Note ---
Assessment/Plan Plan 1. ESRD on HD. 2. HTN 3.DM 4.anemia of CKD 5.s/p CVA 6.COPD 7. S/P PEG 8.s/p intracranial hemorrhage 9.left foot gangrene Plan HD tomorrow recommend podiatry consult for his foot gangrene Subjective Subjective No acute event. Objective Objective Last 24 Hour Vital Signs Date Time Temp Pulse Resp B/P (MAP) Pulse Ox O2 Delivery O2 Flow Rate FiO2 08/23/17 08:00 97.5 78 22 144/70 99 Nasal Cannula 2.0 08/23/17 04:00 72 08/23/17 04:00 98.7 70 18 129/53 100 Nasal Cannula 08/23/17 02:00 78 08/23/17 00:00 98.6 75 20 122/66 100 Nasal Cannula 2.0 08/22/17 21:29 66 126/62 08/22/17 20:00 82 08/22/17 20:00 98.7 83 20 142/59 99 Nasal Cannula 2.0 08/22/17 19:55 80 16 Room Air 08/22/17 19:55 100 Room Air 21 08/22/17 19:55 Room Air 21 08/22/17 16:00 97.0 78 21 122/60 99 Nasal Cannula 2.0 08/22/17 16:00 68 08/22/17 13:00 Nasal Cannula 2.0 08/22/17 12:00 97.5 66 19 126/58 100 Nasal Cannula 2.0 08/22/17 12:00 69 Laboratory Tests 08/23/17 06:30: Iron Level 43L, Total Iron Binding Capacity 77L, Percent Iron Saturation 56H, Unsaturated Iron Binding 34L, Ferritin [Pending], Vitamin B12 Level 1340H, Folate 18.9H Height (Feet): 5 Height (Inches): 4.00 Weight (Pounds): 180 Objective NAD, sleeping but aurosable clear RRR soft, non tender, BS+ no edema, R chest permacath + IGLESIAS,CAS Aug 23, 2017 10:37
[2017-08-23 10:43] LABS: FERRITIN 1838 NG/ML (8-388)
[2017-08-23] MEDS: Ferrous Sulfate 300 MG/5 ML UDC GT SCH ×2 (10:48→12:40)
[2017-08-23] MEDS: Tums 500mg GT SCH (10:48)
[2017-08-23] MEDS: Renvela 800mg Pkt GT SCH ×2 (10:48→12:39)
[2017-08-23] MEDS: Ascorbic Acid 500mg tab GT SCH (10:49)
[2017-08-23] MEDS: Metoprolol 25mg tab GT SCH (10:49)
[2017-08-23] MEDS: Heparin 5000 units/ml inj SUBQ SCH (10:58)
[2017-08-23] MEDS: Cefepime 500mg in D5W 55ml IVPB SCH (11:11)
[2017-08-23 12:00] VITALS: BP 146/68
[2017-08-23 16:00] VITALS: BP 154/79
[2017-08-23] MEDS ORDERED: Sterile Water For Irrig 2000ml IRRIG ONE (17:59)
[2017-08-23] MEDS ORDERED: NS 275ml ONE (17:59)
--- NOTE | 2017-08-26 08:16 | Consultation ---
DATE OF CONSULTATION: 08/22/2017 CONSULTING PHYSICIAN: Timothy Butler M.D. REFERRING PHYSICIANS: 1. Perez Sullivan M.D. 2. Parrish Main M.D. REASON FOR EVALUATION: Access for hemodialysis. HISTORY OF PRESENT COMPLAINT: This is a 62-year-old male who presented from convalescent home. The patient has a history of stroke, nonverbal, severe lower extremity contractures. The patient is on a feeding gastrostomy tube. The patient was found to have unfortunate renal failure, requiring initiation of hemodialysis. The patient underwent a right chest tunneled PermCath. He is currently awaiting dialysis therapy. Vascular Surgery is consulted for more permanent access for hemodialysis. PAST MEDICAL HISTORY: As above, history of renal failure, organic brain syndrome, encephalopathy, stroke, intracranial bleed, chronic obstructive pulmonary disorder, history of feeding gastrostomy tube, type 2 diabetes mellitus, anemia, knee contracture, nonambulatory, and right heel gangrene and necrosis. MEDICATIONS: See attached MAR. ALLERGIES: No known drug allergies. SOCIAL HISTORY: Unobtainable. FAMILY HISTORY: Unobtainable. SYSTEM REVIEW: Unobtainable. The patient he is nonverbal, a intermediate resident. PHYSICAL EXAMINATION: VITAL SIGNS: He is afebrile with no signs of distress at 97 degrees, heart rate is 80, and blood pressure 120/70. GENERAL: A right chest tunneled PermCath catheter in place. LUNGS: Rhonchi bilaterally. HEART: Regular rate and rhythm. ABDOMEN: Soft. He has a feeding gastrostomy tube. He has palpable radial pulses. His abdomen is soft and nontender. EXTREMITIES: He has palpable femoral pulses. He has bilateral knee contractures, locked knee, absent popliteal and pedal pulses bilaterally. Feet are warm. He has a right heel gangrene without any drainage. LABORATORY AND DIAGNOSTIC DATA: Laboratory is reviewed. WBC of 6.3, hemoglobin 8.4, and platelet count is 211,000. Sodium 126, potassium 4.3, chloride is 94, BUN is 124, creatinine 4.0. Lactate is 1.20. AST is 28, ALT is 9. Troponin is 0.05. Albumin is 1.5. Total protein is 5.8. IMPRESSION: 1. Renal failure, requiring access for hemodialysis. 2. History of stroke. 3. Nonverbal. 4. Bilateral knee contracture. 5. Nonambulatory. 6. With a history of intracranial bleed. 7. Feeding gastrostomy tube. 8. Calcific lower extremity arterial occlusive disease with a right heel gangrene. 9. History of diabetes. 10. Chronic anemia. 11. Chronic obstructive pulmonary disorder. 12. Urinary tract infection. PLAN AND RECOMMENDATION: 1. Medical optimization in progress. 2. Continue dialysis through right chest tunneled PermCath. 3. Antibiotics per Infectious Disease service. 4. Obtain lower extremity and arm duplex. 5. Podiatry evaluation for his right heel gangrene. 6. The patient is not a candidate for lower extremity revascularization given the severe knee contracture and if the patient is found to have severe extensive osteomyelitis of the right heel and bone infection, the patient will eventually require right leg amputation above the knee. 7. For left arm AV shunt placement, this will be scheduled once medically optimized and cleared of any infections. The above was discussed at length with the patient's nurse at bedside, Lexi. Timothy Butler M.D. DR: JACQUELINE JOB#: [id number] CC: Parrish Main M.D.; Fax#: [phone] PEREZ SULLIVAN M.D. ; FAX#: [phone]
--- NOTE | 2017-08-26 13:41 | Discharge Summary ---
Discharge Summary Hospital Course Date of Admission Aug 19, 2017 at 13:06 Date of Discharge Aug 23, 2017 at 18:00 Admitting Diagnosis ACUTE RENAL FAILURE HPI Shilo Banerjee is a 62 year old male who was admitted on Aug 19, 2017 at 13:06 for Acute Renal Failure Hospital Course dc summary #[id number] Discharge Condition Upon Discharge: stable Discharge Disposition Patient was discharged to SNF/Subacute Facility(03) Discharge Diagnoses: Discharge Instructions Discharge Instructions Special Instructions I have been assigned to complete a D/C Summary on this account. I was not involved in the patient management Enedelia Ulrich NP (Vanchtein) Aug 26, 2017 13:41
--- NOTE | 2017-08-27 04:30 | Discharge Summary 2 SIG ---
DATE OF ADMISSION: 08/19/2017 DATE OF DISCHARGE: 08/23/2017 REASON FOR ADMISSION: 62-year-old male with past medical history of diabetes type 2, hypertension, chronic kidney disease, CHF, COPD, advanced dementia, and organic brain syndrome, was sent for evaluation to emergency department due to abnormal laboratories. Upon evaluation, BUN- 124, creatinine -4.0, and sodium -126. The patient was admitted. HOSPITAL COURSE: Nephrology consult was requested. Car Deliverer seen and evaluated the patient. Vascular surgeon consult was requested for placement of hemodialysis catheter. Subsequently, the patient had a right chest tunneled catheter placed and started on hemodialysis as per [employer]. Renal parameters and electrolytes were closely monitored. Hepatitis panel was drawn for acceptance to the outpatient hemodialysis. The patient was accepted to outpatient dialysis. All fci medications were resumed. Blood pressure was managed with current regimen and was stable. Blood sugar was managed with sliding scale of insulin and was stable. Anemia workup was consistent with anemia of chronic disease. High ferritin was noted. No need for blood transfusion. Urinalysis with evidence of infection. Urine culture grew Pseudomonas. The patient will need five more days of IV antibiotics in fci. Wound care nurse seen and evaluated the patient. The patient had, present on admission, left trochanter stage II and right heel necrotic ulcer. Preop dialysis access evaluation was done with vein mapping on the right and left side. Vascular surgeon seen and evaluated the patient, and placed a hemodialysis access. Vascular surgeon also recommended podiatry evaluation for right heel gangrene. According to vascular surgeon, the patient was not a candidate for lower extremity revascularization, given severe knee contracture and history of severe extensive osteomyelitis of right heel and bone infection. Per surgeon, the patient essentially will require a right leg amputation above the knee. AV shunt placement will be scheduled when the patient medically optimized and cleared for any infection. The patient was stable to return back to [facility]. Placement confirmed. Placement was arranged for outpatient hemodialysis, as mentioned above. The patient was stable for discharge. FINAL DIAGNOSES: 1. End-stage renal disease, likely secondary to diabetic nephropathy, newly hemodialysis 2. 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 Anemia of chronic kidney disease. 4. Urinary tract infection with Pseudomonas. 5. Diabetes type 2. 6. Dysphagia, gastrostomy-tube. 7. Chronic obstructive pulmonary disease. 8. History of cerebrovascular accident. 9. Hypertension. 10. History of intracranial hemorrhage. DISCHARGE INSTRUCTIONS: The patient was discharged to [facility]. FOLLOWUP: Follow up with medical doctor at the facility. DISCHARGE MEDICATIONS: List of medication was sent with the patient to [facility]. Parrish Main M.D. I have been assigned to dictate discharge summary on this account and I was not involved in the patient's management. Enedelia Ulrich (Vanchtein) NNicole DR: RYAN JOB#: [id number] CC: [email or web address]
--- NOTE | 2017-08-28 23:41 | Diagnostic Imaging Report ---
APPROVED REPORT CPT Code: 85065 Symptoms Comments: PVD AND ESRD PRE-OP BILATERAL: Common femoral artery waveform analysis is within normal limits at rest. Color flow duplex sonography reveals minimal calcification throughout the superficial femoral, and popliteal arteries. There is no evidence of stenosis or occlusion within these segments. The posterior tibial, anterior tibial and dorsalis pedis arteries are patent. Doppler tibial artery (multi-phasic) waveform analysis is within normal limits bilaterally.
--- NOTE | 2017-08-30 15:52 | Cardiology Report ---
APPROVED REPORT EKG Measurement Heart [id number] Normal sinus rhythm Abnormal QRS-T angle, consider primary T wave abnormality Abnormal ECG
== END 2017-08-23 18:00 | DRG 469 ==
LOC: EDBD 10:04 → EMR 10:40 → EDBEDREQ 12:27 → 2E 13:06 → EDBEDREQ 13:14
PROC: 02H633Z Insertion of Infusion Device into Right Atrium, Percutaneous Approach (ICD-10-PCS; principal; 2017-08-21)
PROC: B244ZZZ Ultrasonography of Right Heart (ICD-10-PCS; 2017-08-21)
PROC: 5A1D70Z Performance of Urinary Filtration, Intermittent, Less than 6 Hours Per Day (ICD-10-PCS; 2017-08-22)
DX: N17.9 Acute kidney failure, unspecified (principal); I13.2 Hypertensive heart and chronic kidney disease with heart failure and with stage 5 chronic kidney disease, or end stage renal disease; I96 Gangrene, not elsewhere classified; E11.22 Type 2 diabetes mellitus with diabetic chronic kidney disease; I50.9 Heart failure, unspecified; E11.52 Type 2 diabetes mellitus with diabetic peripheral angiopathy with gangrene; E87.1 Hypo-osmolality and hyponatremia; N18.6 End stage renal disease; J44.9 Chronic obstructive pulmonary disease, unspecified; D63.1 Anemia in chronic kidney disease; N39.0 Urinary tract infection, site not specified; I25.2 Old myocardial infarction; F09 Unspecified mental disorder due to known physiological condition; I25.10 Atherosclerotic heart disease of native coronary artery without angina pectoris; B96.5 Pseudomonas (aeruginosa) (mallei) (pseudomallei) as the cause of diseases classified elsewhere; Z93.1 Gastrostomy status; Z86.73 Personal history of transient ischemic attack (TIA), and cerebral infarction without residual deficits
CPT/HCPCS: 36415; 71010; 76000; 76775; 80053; 81003; 82550; 82553; 82607; 82728; 82746; 82962; 83540; 83550; 83605; 84100; 84484; 85025; 85610; 85730; 86705; 86709; 86803; 87040; 87081; 87086; 87181; 87340; 93005; 93306; 93880; 93922; 93925; 93930; 93970; 94664; 94760; 96365; 96375; 96376; 99285; J1815; S5561